=== PATIENT | male | born 1950 | race Caucasian/White ===

== ENCOUNTER → 2025-01-20 11:07 | Outpatient (REF) | payer MEDICARE, SELFPAY | LOC: PAVMRI 11:07 | PROVIDERS: ATTENDING PHYSICIAN Orthopaedic Surgery | DX: M25.562 Pain in left knee (principal) | CPT/HCPCS: 73721 ==

== ENCOUNTER → 2025-02-19 07:22 | Outpatient (REF) | payer MEDICARE, SELFPAY ==
[2025-02-19 08:57] LABS: Hematocrit 41.2 % (39.0-52.0); Hemoglobin 14.0 g/dL (13.0-18.0); Mean Corp Hgb Conc. 34.0 g/dL (33.0-37.0); Mean Corpuscular Volume 87.1 fL (80.0-94.0); Platelet Count 263 10^3/uL (130-400); Red Cell Dist. Width 12.0 % (11.5-14.5)
[2025-02-19 09:45] LABS: Blood Urea Nitrogen 22 mg/dl (9-20); Calcium 9.8 mg/dl (8.4-10.2); Carbon Dioxide 33 mmol/L (22-30); Chloride 100 mmol/L (98-107); Glucose 108 mg/dl (70-99); Potassium 5.0 mmol/L (3.5-5.1); Sodium 137 mmol/L (135-145); eGFR > 60.00
== END ==
LOC: SDSPAT 07:22
PROVIDERS: ATTENDING PHYSICIAN Orthopaedic Surgery; FAMILY PHYSICIAN Student in an Organized Health Care Education/Training Program
DX: Z01.818 Encounter for other preprocedural examination (principal)
CPT/HCPCS: 36415; 80048; 85027; 93005

== ENCOUNTER 2025-03-13 05:47 | Day surgery (SDC) | payer MEDICARE, SELFPAY ==
[2025-02-19 14:15] VITALS: BMI 25.4
[2025-03-13 06:05] VITALS: BMI 25.4
[2025-03-13 06:07] VITALS: BP 133/64
[2025-03-13] MEDS: TYLENOL 1000 MG PO (06:25)
[2025-03-13] MEDS: NORMOSOL-R/PLASMALYTE-A 1000 IV (06:25)
[2025-03-13] MEDS: CELEBREX 200 MG PO (06:25)
[2025-03-13 07:51] VITALS: BP 127/68; BP 133/64
[2025-03-13 08:00] VITALS: BP 116/62
[2025-03-13 08:15] VITALS: BP 114/65
[2025-03-13 08:30] VITALS: BP 125/71
[2025-03-13 09:00] VITALS: BP 129/73
== END 2025-03-13 09:30 | disposition home or self-care (01) ==
LOC: SDS 05:47
PROVIDERS: ATTENDING PHYSICIAN Orthopaedic Surgery
DX: S83.242A Other tear of medial meniscus, current injury, left knee, initial encounter (principal); X58.XXXA Exposure to other specified factors, initial encounter; M65.862 Other synovitis and tenosynovitis, left lower leg
CPT/HCPCS: 29881